=== PATIENT | female | born 1980 | race Caucasian/White ===

== ENCOUNTER → 2018-10-22 | Outpatient (CLI) | payer BC ==
--- NOTE | 2018-10-22 10:49 | Diagnostic Imaging Report ---
PROCEDURE: US abdomen complete. TECHNIQUE: Multiple real-time grayscale images were obtained over the abdomen in various projections. INDICATION: Abdominal pain. FINDINGS: The liver measures 16.6 cm in size. There is generalized increased echogenicity throughout the liver consistent with hepatic steatosis. No discrete liver mass is identified. The portal vein is patent and shows normal direction of flow. The gallbladder is without stones or sludge. No wall thickening or biliary duct dilatation is identified. The pancreatic head and proximal body are unremarkable. Pancreatic tail is not well-visualized due to overlying bowel gas. The spleen is normal in size at 9.9 cm. Right and left kidneys are unremarkable. No calculi or hydronephrosis is seen. There is no ascites. IMPRESSION: 1. Hepatic steatosis. 2. No evidence of cholelithiasis or acute cholecystitis. Dictated by: Dictated on workstation # [id number]
== END ==
LOC: RAD 07:56
PROVIDERS: ATTEND Internal Medicine
DX: K76.0 Fatty (change of) liver, not elsewhere classified (principal)
CPT/HCPCS: 76700

== ENCOUNTER → 2018-12-07 | Outpatient (CLI) | payer BC ==
[~2018-12-07] MED LIST: CATHETER FLUSH 10 ML SYR IV PRN
--- NOTE | 2018-12-07 14:48 | Diagnostic Imaging Report ---
HEPATOBILIARY SCAN DATE: December 07, 2018. INDICATION: 38-year-old female, abdominal pain and elevated liver enzymes. COMPARISON: Ultrasound October 22, 2018. PROCEDURE: 5.41 mCi of Tc-99m choletec was administered intravenously and serial anterior planar images over the liver and upper abdomen were obtained. FINDINGS: There is clearance of background activity by the liver indicating hepatocyte function. There is radiotracer excretion into the bile ducts with prompt filling of the gallbladder. There is radiotracer extension into small bowel. There is no identified enterogastric reflux. Ensure was administered for calculation of gallbladder ejection fraction. Gallbladder ejection fraction was calculated to be 16.6%. IMPRESSION: 1. No evidence of acute cholecystitis. 2. No evidence of complete bile duct obstruction. 3. Gallbladder ejection fraction measured below lower limits of normal which potentially can be seen in the setting of biliary dyskinesia and/or chronic cholecystitis. Dictated by: Dictated on workstation # [id number]
== END ==
LOC: CARD 09:30
PROVIDERS: ATTEND Internal Medicine
DX: R74.8 Abnormal levels of other serum enzymes (principal); R10.9 Unspecified abdominal pain
CPT/HCPCS: 78227

== ENCOUNTER 2018-12-21 06:37 | Outpatient (CLI) | payer BC ==
[~2018-12-21] VITALS: Ht 160 cm; Wt 117.9 kg
[2018-12-21] MEDS ORDERED: VENL150C PO (13:11)
== END 2018-12-21 13:23 | disposition home or self-care (01) ==
LOC: PREOP 06:37
PROVIDERS: ATTEND Surgery
DX: Z01.818 Encounter for other preprocedural examination (principal)

== ENCOUNTER 2018-12-23 08:24 | Day surgery (SDC) | payer BC ==
[~2018-12-23] VITALS: Ht 160 cm; Wt 117.9 kg
[~2018-12-23 08:24] MED LIST changes: -CATHETER FLUSH 10 ML SYR IV PRN; +VENL150C PO
[2018-12-23] MEDS: LACTATED RINGERS 1,000 ML IV PRN ×3 (08:45→10:35)
--- NOTE | 2018-12-23 08:51 | Progress Note-Pre Operative ---
Pre-Operative Progress Note H&P Reviewed The H&P was reviewed, patient examined and no changes noted. Date Seen by Provider: Dec 23, 2018 Time Seen by Provider: 08:50 Date H&P Reviewed: Dec 23, 2018 Time H&P Reviewed: 08:45 Pre-Operative Diagnosis: Symptomatic Biliary Dyskinesia JOHANNA ALONSO REAMING PRESS OPERATOR Dec 23, 2018 08:51
[2018-12-23] MEDS ORDERED: HYDR-3816 PO (08:53)
--- NOTE | 2018-12-23 08:54 | Discharge Inst-Surgical ---
D/C Lap Instructions-KIDO New, Converted, or Re-Newed RX: RX on Chart Follow Up Appt in 2 weeks Activity as tolerated No driving for 24 hours No driving while on pain medications Incentive Spirometry use every 2 hours while awake Regular Diet Symptoms to Report: Fever over 101 degree F, Nausea/Vomiting Infection Signs and Symptoms to report: Increased redness, Foul odor of wound, Increased drainage Bathing instructions: May shower Operative Area Clean/Dry; Keep incision clean/dry If any problems/questions: Contact your physician or go to Emergency Room JOHANNA ALONSO APRN Dec 23, 2018 08:54
[2018-12-23] MEDS ORDERED: ceFAZolin 2 GM IV Premixed 50 ML IV ONE (09:00)
[2018-12-23] MEDS ORDERED: ACETAMINOPHEN 325 MG TABLET PO PRN (09:00)
[2018-12-23] MEDS ORDERED: ONDANSETRON 4 MG/2 ML (SDV) Z0FRAN IVP PRN ×2 (09:00→11:15)
[2018-12-23] MEDS ORDERED: morphine INJ 10 MG/ML 1ML (SYR OR VIAL) IVP PRN (09:00)
[2018-12-23] MEDS ORDERED: oxyCODONE/APAP 5/325MG (PERCOCET 5) TABLET PO PRN (09:00)
[2018-12-23 09:10] LABS: BASOPHILS # (AUTO) 0.1 10^3/uL (0.0-0.1); BASOPHILS % (AUTO) 1 % (0-10); EOSINOPHILS # (AUTO) 0.3 10^3/uL (0.0-0.3); EOSINOPHILS % (AUTO) 4 % (0-10); HEMATOCRIT 39 % (35-52); HEMOGLOBIN 12.8 G/DL (11.5-16.0); LYMPHOCYTES % (AUTO) 27 % (12-44); MEAN CORPUSCULAR HEMOGLOBIN 31 PG (25-34); MEAN CORPUSCULAR HGB CONC 33 G/DL (32-36); MEAN CORPUSCULAR VOLUME 93 FL (80-99); MEAN PLATELET VOLUME 8.9 FL (7.4-10.4); MONOCYTES # (AUTO) 0.5 X 10^3 (0.0-1.0); MONOCYTES % (AUTO) 6 % (0-12); NEUTROPHILS # (AUTO) 4.5 X 10^3 (1.8-7.8); NEUTROPHILS % (AUTO) 62 % (42-75); PLATELET COUNT 297 10^3/uL (130-400); RED CELL DISTRIBUTION WIDTH 14.6 % (10.0-14.5); WHITE BLOOD COUNT 7.3 10^3/uL (4.3-11.0)
[2018-12-23] MEDS ORDERED: BUP/EPI 0.5% 1:200,000 (SENSORCAINE) 30 ML VIAL ONE (09:16)
[2018-12-23] MEDS ORDERED: fentaNYL INJECTION 100 MCG/2 ML AMP ONE (09:51)
[2018-12-23] MEDS ORDERED: MIDAZOLAM 2 MG/2 ML (VERSED) VIAL ONE (09:51)
[2018-12-23] MEDS ORDERED: proPOfol 200 MG/20 ML (DIPRIVAN) VIAL IV ONE ×2 (10:03→10:48)
[2018-12-23] MEDS ORDERED: DEXAMETHASONE 10 MG/ML (DECADRON) 1 ML VIAL ONE (10:03)
[2018-12-23] MEDS ORDERED: SEVOFLURANE (ULTANE) 15 ML INHAL SOLN ONE ×4 (10:03→10:51)
[2018-12-23] MEDS ORDERED: ROCURONIUM 10 MG/ML 5 ML SYRINGE IV ONE (10:03)
[2018-12-23] MEDS ORDERED: LIDOCAINE PF 2% 5 ML (XYLOCAINE) VIAL ONE (10:03)
[2018-12-23] MEDS ORDERED: ONDANSETRON 4 MG/2 ML (SDV) Z0FRAN ONE (10:03)
[2018-12-23] MEDS ORDERED: NEOSTIGMINE 1 MG/ML 5 ML SYRINGE ONE (10:48)
[2018-12-23] MEDS ORDERED: GLYCOPYRROLATE 0.2 MG/ML (ROBINUL) 2 ML VIAL ONE (10:48)
[2018-12-23 10:53] VITALS: BP 133/89
--- NOTE | 2018-12-23 11:05 | Progress Note-Post Operative ---
Post-Operative Progess Note Surgeon (s)/Torpedo Worker (s) Surgeon MARYAN FU MD Torpedo Worker: misael larson ORIENTATION & MOBILITY SPECIALIST Pre-Operative Diagnosis Symptomatic Biliary Dyskinesia Post-Operative Diagnosis same Procedure & Operative Findings Date of Procedure 12/23/18 Procedure Performed/Findings laparoscopic cholecystectomy Anesthesia Type GET Estimated Blood Loss Estimated blood loss (mL): minimal Specimens/Packing Specimens Removed gallbladder MARYAN FU MD Dec 23, 2018 11:05
[2018-12-23] MEDS ORDERED: morphine INJ 10 MG/ML 1ML (SYR OR VIAL) IVP ONE (11:15)
[2018-12-23] MEDS ORDERED: PROMETHAZINE INJ 25 MG/ML (PHENERGAN) AMP IVP ONE (11:15)
[2018-12-23] MEDS ORDERED: HYDROmorphone 2 MG/ML VIAL (DILAUDID) ONE (11:34)
[2018-12-23] MEDS ORDERED: HYDROmorphone 2 MG/ML VIAL (DILAUDID) IV ONE (11:45)
[2018-12-23 12:30] VITALS: BP 142/98
--- NOTE | 2018-12-23 12:53 | Anesthesia-General Post-Op ---
General Patient Condition Mental Status/LOC: Same as Preop Cardiovascular: Satisfactory Nausea/Vomiting: Absent Respiratory: Satisfactory Pain: Controlled Complications: Absent Post Op Complications Complications None Follow Up Care/Instructions Patient Instructions None needed. Anesthesia/Patient Condition Patient Condition Patient is doing well, no complaints, stable vital signs, no apparent adverse anesthesia problems. No complications reported per nursing. FRANNIE ORTEGA CRNA Dec 23, 2018 12:53
[2018-12-23 13:00] VITALS: BP 152/91
[2018-12-23 13:30] VITALS: BP 143/92
[2018-12-23 14:30] VITALS: BP 140/88
[2018-12-23 15:00] VITALS: BP 140/88
--- NOTE | 2018-12-23 15:22 | OPERATIVE REPORT ---
DATE OF SERVICE: 12/23/2018 ATTENDING PRIMARY CARE PHYSICIAN: Dr. Esposito. PREOPERATIVE DIAGNOSIS: Symptomatic biliary dyskinesia. POSTOPERATIVE DIAGNOSIS: Symptomatic biliary dyskinesia. PROCEDURE: Laparoscopic cholecystectomy. SURGEON: Maryan Fu MD SUPERVISOR LOCOMOTIVE: Harish Wilde APRN ANESTHESIA: General endotracheal. ESTIMATED BLOOD LOSS: Minimal. FINDINGS: A slightly distended gallbladder, mild hepatomegaly, appendix looked normal. DISPOSITION: The patient tolerated the procedure well. INDICATION: The patient is a 38-year-old female, who has had issues with right upper abdominal quadrant pain with radiation towards the back for the past 2 years; however, has become much more frequent as well as severe in nature. She underwent an ultrasound, which did not show any gallstones; however, HIDA scan did show a very low ejection fraction of 16% as well as reproduction of symptoms with administration of Kinevac analogue consistent with symptomatic biliary dyskinesia. DESCRIPTION OF PROCEDURE: The patient was brought to the operating room, laid supine on the table. After adequate IV pain and sedating medications and general endotracheal intubation, the abdomen was prepped and draped in standard surgical fashion. A 0.5% Marcaine with epinephrine was used to anesthetize the overlying skin in the left upper abdominal quadrant and a transverse skin incision made using a 15 blade. An 0 silk suture was applied to the medial aspect of the incision for traction and a Veress needle inserted with low opening pressure of 0 mmHg and the abdomen was insufflated to 15 mmHg pressure. The Veress needle removed and a 5 mm Xcel trocar placed followed by a 5 mm 45-degree angle laparoscope visualizing the peritoneal cavity. A 4-quadrant abdominal exploration was performed. There was mild gallbladder distention and mild hepatomegaly. The appendix appeared normal. Under direct visualization, we then proceeded to place a supraumbilical 10 mm port after the skin and peritoneal lining were anesthetized using 0.5% Marcaine with epinephrine and a transverse skin incision made using a 15 blade. In a similar manner, a right upper abdominal quadrant 5 mm port was placed. The patient was then placed in reverse Trendelenburg position as well as plane right side up and left side down. The fundus of the gallbladder was then retracted anteriorly and superiorly. The hepatoduodenal ligament was then opened using blunt dissection as well as electrocautery on the hook instrument. The entire critical view of safety was identified including the cystic duct and artery as the only two structures going into the gallbladder, the triangle of Calot as well as the cystic plate behind the proximal gallbladder. A timeout was then taken and the cystic duct and artery were then clipped proximally, distally and cut with EndoShears. The gallbladder was then dissected off the liver bed using cautery on hook instrument with visualization of good hemostasis as well as no leaking ducts of Luschka. The gallbladder was removed through the 10 mm port site using an EndoCatch bag. The 10 mm port site fascia and peritoneum were then closed under direct visualization using a Bravo-Kian device and 0 Vicryl suture. The abdomen was desufflated and the remaining ports removed. All skin incisions were closed using 4-0 Monocryl running subcuticular sutures. Wounds were then cleaned and covered with Dermabond. The patient tolerated the procedure well. We will start IV and oral pain medication as well as a clear liquid diet. Once she is tolerating clears, has good pain control with oral pain medications, ambulating well, we will discharge her home. She will be instructed to do no heavy lifting or exertion for the next two weeks. Job ID: [id number] DocumentID: [id number] Dictated Date: 12/23/2018 10:54:02 Field Laborer Date: 12/23/2018 15:21:43 Dictated By: MARYAN FU MD
--- NOTE | 2018-12-27 14:02 | Progress Note-Standard ---
Standard Progress Note Progress Notes/Assess & Plan Date Seen by a Provider: Dec 27, 2018 Time Seen by a Provider: 13:33 Progress/Assessment & Plan I was notified by Dr. Mendoza that Mrs. Simpson called our office earlier today with complaints of an elongated, white uvula that was causing symptoms of fullness and choking. Upon me calling the patient, the patient states she first noticed these symptoms once she was at home on (12/23/18) evening. She states she went to Urgent Care with these symptoms on Thursday (12/25) and was given a shot of something (she wasn't sure what) and was put on Augmentin PO. The patient said the WELDING MACHINE OPERATOR RESISTANCE at Urgent Care is who told her that her uvula looks elongated and white. Upon reviewing the anesthesia record from 12/23, the patient 's course of stay in the OR was uneventful. The intubation was with a 7.0 ett, using the Bush video laryngoscope, with an atraumatic placement. The total time the patient was under anesthesia was around 1 hour. I recall no problems with intubation, extubation or any problems with the patient in recovery. I reviewed the anesthesia record with the patient and discussed that I had no explanation for her signs and symptoms. I offered to the patient that she could come in to day surgery this afternoon so we could evaluate her uvula, or that we could give the antibiotics a couple more days to work and re-evaluate her on Thursday (12/29). The patient stated she would wait a couple more days before coming in to be evaluated, which I feel to be appropriate. I will call and follow up with the patient on Thursday12/29/18. LADONNA QUINTERO CRNA Dec 27, 2018 14:02
== END 2018-12-23 14:55 | disposition home or self-care (01) ==
LOC: SDC 08:24
PROVIDERS: ATTEND Surgery
DX: K81.1 Chronic cholecystitis (principal); K21.9 Gastro-esophageal reflux disease without esophagitis; F41.9 Anxiety disorder, unspecified; E66.01 Morbid (severe) obesity due to excess calories; Z68.42 Body mass index [BMI] 45.0-49.9, adult; Z79.899 Other long term (current) drug therapy
CPT/HCPCS: 36415; 84703; 85025; 87081; 88304

== ENCOUNTER 2019-05-19 17:14 | Emergency (ER) | payer OTHER, BC ==
[~2019-05-19] VITALS: Ht 160 cm; Wt 120.2 kg
[~2019-05-19 17:14] MED LIST changes: +HYDR-3816 PO
--- NOTE | 2019-05-19 18:34 | Diagnostic Imaging Report ---
EXAM: KNEE, LEFT, 3 VIEWS INDICATION: Left knee pain. Fall. COMPARISON: None. FINDINGS: No fracture or malalignment. No suspicious osteoblastic or lytic lesions. Soft tissue shadows are unremarkable. IMPRESSION: Negative left knee radiographs. Dictated by: Dictated on workstation # [id number]
--- NOTE | 2019-05-19 18:35 | Diagnostic Imaging Report ---
INDICATION: Fall, ankle pain 3 views of each ankle were obtained. There is no fracture, dislocation or other abnormality. IMPRESSION: Normal bilateral ankles. Dictated by: Dictated on workstation # [id number]
--- NOTE | 2019-05-19 18:36 | Diagnostic Imaging Report ---
EXAM: TIBIA/FIBULA, LEFT, 2 VIEWS INDICATION: Fall. Left lower extremity pain. COMPARISON: None. FINDINGS: Mildly displaced oblique fracture of the distal left fibular diaphysis. No other fracture or malalignment. No suspicious osteoblastic or lytic lesions. Soft tissue shadows are unremarkable. IMPRESSION: Mildly displaced oblique fracture of the distal left fibular diaphysis. Dictated by: Dictated on workstation # [id number]
--- NOTE | 2019-05-19 18:52 | ED Fall/Injury ---
General Chief Complaint: Lower Extremity Stated Complaint: FALL Nursing Triage Note: PATIENT HERE BY EMS AFTER MISSING A STEP AND FALLING ON STAIRS. PAIN TO LEFT ANKLE AND WRIGHT AND TOP OF RIGHT FOOT. Source: patient History of Present Illness Date Seen by Provider: May 19, 2019 Time Seen by Provider: 17:50 Initial Comments PT ARRIVES VIA POV STATES SHE FELL DOWN 2 STEPS AT WORK ( WORKS AT [employer] ) AT 1645 TODAY C/O BILATERAL ANKLE PAIN, LEFT LOWER LEG AND KNEE PAIN DID NOT HIT HEAD AND NO LOSS OF CONSCIOUSNESS NO INJURIES ABOVE KNEES NO PARESTHESIAS OR MOTOR DEFICITS NO PRIOR INJURY TO EITHER FOOT, ANKLE OR LEG HAS NOT TAKEN ANYTHING FOR PAIN PCP: DR. BOSCH Allergies and Home Medications Allergies Coded Allergies: bacitracin (Verified Allergy, Mild, RASH, 12/21/18) neomycin (Verified Allergy, Mild, RASH, 12/21/18) polymyxin B (Verified Allergy, Mild, RASH, 12/21/18) Home Medications Hydrocodone Bit/Acetaminophen 1 Tab Tab, 1-2 EACH PO Q6H PRN for PAIN-MODERATE Prescribed by: JARON JUAN on 05/19/19 1859 Hydrocodone/Acetaminophen 1 Each Tablet, 1-2 TAB PO Q4H Prescribed by: JOHANNA ALONSO on 12/23/18 0853 Venlafaxine HCl 150 Mg Cap.er.24h, 150 MG PO DAILY, (Reported) Patient Home Medication List Home Medication List Reviewed: Yes Review of Systems Review of Systems Constitutional: no symptoms reported Respiratory: no symptoms reported Cardiovascular: no symptoms reported Gastrointestinal: no symptoms reported Genitourinary: no symptoms reported LMP: May 12, 2019 (IUD IN PLACE) Musculoskeletal: see HPI Skin: no symptoms reported Psychiatric/Neurological: No Symptoms Reported Past Gmiqjjm-Kmnlay-Mvjvym Hx Past Med/Social Hx: Reviewed and Corrections made Patient Social History Alcohol Use: Occasionally Uses Recreational Drug Use: No Smoking Status: Never a Smoker 2nd Hand Smoke Exposure: No Recent Foreign Travel: No Contact w/Someone Who Travel: No Recent Infectious Disease Expo: No Recent Hopitalizations: No Physical Abuse: No Sexual Abuse: No Immunizations Up To Date Date of Influenza Vaccine: Jun 21, 2018 Seasonal Allergies Seasonal Allergies: Yes Past Medical History Surgeries: Yes (SINUS SURGERY X 3) Gallbladder Respiratory: No Cardiac: No Neurological: No : No 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00" Weight: 265lbs. 0oz. 120.629378ne; 46.1 BMI Method:Stated General Appearance: WD/WN, no apparent distress HEENT: PERRL/EOMI Neck: non-tender, full range of motion, supple, normal inspection Cardiovascular: regular rate, rhythm, no murmur Respiratory: chest non-tender, normal breath sounds, no respiratory distress, no accessory muscle use Peripheral Pulses: 2+ Dorsalis Pedis (R), 2+ Left Dors-Pedis (L) Gastrointestinal: non tender, soft Back: normal inspection, no CVA tenderness, no vertebral tenderness Extremities: other (TENDERNESS AND SLIGHT SWELLING TO RIGHT ANKLE/LATERAL MALLEOLUS. DISTAL MOTOR/SENSORY/VASCULAR INTACT; MILD SWELLING TO LEFT ANKLE/ LATERAL MALLEOLUS, MODERATE TENDERNESS TO LATERAL MALLEOLUS. DISTAL HALF OF LEFT LOWER LEG AND MILD TENDERNESS TO LEFT KNEE. 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 as tested, no motor/sensory deficits, alert, normal mood/affect, oriented x 3 Skin: normal color, warm/dry [place] Coma Score Best Eye Response: (4) Open Spontaneously Best Verbal Response: (5) Oriented Best Motor Response: (6) Obeys Commands [place] Total: 15 Procedures/Interventions Splinting and Joint Reduction : Syed wrap: Yes Immobilizers: Step Light Walker s/m/lg Ordered: Crutches Progress/Results/Core Measures Results/Orders My Orders Orders - JARON JUAN DO Tibia/Fibula, Left, 2 Views (05/19/19 17:57) Knee, Left, 3 Views (05/19/19 17:57) Ankle, Bilateral, 3 Views (05/19/19 17:57) Hydrocodone/Apap 5/325 Tablet (Lortab 5 (05/19/19 19:00) Syed Bandage (05/19/19 18:52) Crutches (05/19/19 18:52) Steplite (05/19/19 18:52) Medications Given in ED Vital Signs/I&O 05/19/19 05/19/19 17:15 19:45 Temp 99.6 99.6 Pulse 94 94 Resp 18 18 B/P (MAP) 153/104 (120) 153/104 (120) Pulse Ox 100 100 Blood Pressure Mean: 120 Diagnostic Imaging Comments XRAYS PER RADIOLOGIST REPORTS AT 1848: RIGHT ANKLE--NO ACUTE BONY INJURY LEFT KNEE--NO ACUTE BONY INJURY LEFT TIB-FIB--DISTAL FIBULA FRACTURE LEFT ANKLE--DISTAL FIBULA FRACTURE Reviewed: Reviewed by Me Departure Impression Primary Impression: S/P FALL DOWN STEPS Additional Impressions: Closed left fibular fracture Right ankle sprain LEFT KNEE CONTUSON Contusion of left knee, initial encounter Disposition: 01 HOME, SELF-CARE Condition: Stable Departure-Patient Inst. Referrals: JULIET BOSCH DO (PCP/Family) Primary Care Physician MARYANN DAMIAN MD Patient Instructions: Fibula Fracture (DC), Ankle Sprain (DC), Contusion (DC) Add. Discharge Instructions: ICE TO SORE AREAS AT 20 MINUTE INTERVALS ELEVATE FEET MUCH POSSIBLE SYED WRAP TO BOTH LEGS WEAR BOOT ON LEFT AT ALL TIMES USE CRUTCHES AT ALL TIMES--NO WEIGHT BEARING ON LEFT LEG UNTIL CLEARED BY DR. FOLLOW UP WITH DR. DAMIAN, ORTHOPEDIC SURGEON THIS WEEK FOR FURTHER CARE All discharge instructions reviewed with patient and/or family. Voiced understanding. Scripts Hydrocodone Bit/Acetaminophen (Hydrocodone/Acetaminophen 5/325mg Tablet) 1 Tab Tab 1-2 EACH PO Q6H PRN for PAIN-MODERATE MDD 10, #20 TAB Prov: JARON JUAN DO 05/19/19 JARON JUAN DO May 19, 2019 18:52
[2019-05-19] MEDS ORDERED: ACHD5005 PO (18:59)
[2019-05-19] MEDS ORDERED: HYDROcodone/APAP 5 MG/325 MG (LORTAB) TAB PO ONE (19:00)
[2019-05-19 19:45] VITALS: BP 153/104
== END 2019-05-19 19:47 | disposition home or self-care (01) ==
LOC: EDUNIT# 17:14 → ER 17:15
DX: S82.432A Displaced oblique fracture of shaft of left fibula, initial encounter for closed fracture (principal); S80.02XA Contusion of left knee, initial encounter; S93.401A Sprain of unspecified ligament of right ankle, initial encounter; K21.9 Gastro-esophageal reflux disease without esophagitis; E03.9 Hypothyroidism, unspecified; F41.9 Anxiety disorder, unspecified; R40.2142 Coma scale, eyes open, spontaneous, at arrival to emergency department; R40.2252 Coma scale, best verbal response, oriented, at arrival to emergency department; R40.2362 Coma scale, best motor response, obeys commands, at arrival to emergency department; Z88.1 Allergy status to other antibiotic agents; W10.9XXA Fall (on) (from) unspecified stairs and steps, initial encounter; Y92.59 Other trade areas as the place of occurrence of the external cause; Y99.0 Civilian activity done for income or pay
CPT/HCPCS: 73562; 73590

== ENCOUNTER 2019-07-01 09:38 | Outpatient (CLI) | payer OTHER, BC ==
[~2019-07-01] VITALS: Ht 160 cm; Wt 120.4 kg
[~2019-07-01 09:38] MED LIST changes: +ACHD5005 PO
[2019-07-01] MEDS ORDERED: LEVO5TAB28 PO (09:42)
== END 2019-07-01 09:56 | disposition home or self-care (01) ==
LOC: PREOP 09:38
PROVIDERS: ATTEND Orthopaedic Surgery
DX: Z01.818 Encounter for other preprocedural examination (principal)

== ENCOUNTER 2019-07-06 09:18 | Day surgery (SDC) | payer BC, OTHER ==
[2019-07-06] VITALS (12 sets, daily range): BP systolic 103–135; BP diastolic 72–90
[~2019-07-06] VITALS: Ht 160 cm; Wt 120.4 kg
[~2019-07-06 09:18] MED LIST changes: +LEVO5TAB28 PO
--- NOTE | 2019-07-06 09:20 | Progress Note-Pre Operative ---
Pre-Operative Progress Note H&P Reviewed The H&P was reviewed, patient examined and no changes noted. Date Seen by Provider: Jul 06, 2019 Time Seen by Provider: 09:20 Date H&P Reviewed: Jul 06, 2019 Time H&P Reviewed: 09:20 Pre-Operative Diagnosis: left ankle syndesmosis disruption MANUEL AUGUSTIN MD Jul 06, 2019 09:20
--- NOTE | 2019-07-06 09:21 | Progress Note-Post Operative ---
Post-Operative Progess Note Surgeon (s)/Marine Geologist (s) Surgeon MANUEL AUGUSTIN MD Marine Geologist: Michael Hay Pre-Operative Diagnosis left ankle syndesmosis disruption Post-Operative Diagnosis left ankle syndesmosis disruption Procedure & Operative Findings Date of Procedure 07/06/19 Procedure Performed/Findings ORIF left syndesmosis Anesthesia Type GETA Estimated Blood Loss Estimated blood loss (mL): minimal Specimens/Packing Specimens Removed none Packing: none MANUEL AUGUSTIN MD Jul 06, 2019 09:21
[2019-07-06] MEDS ORDERED: LACTATED RINGERS 1,000 ML IV PRN (09:28)
[2019-07-06] MEDS ORDERED: ceFAZolin INJECTION 1,000 MG in WATER (STERILE) FOR INJECTION 10 ML IV ONE (09:30)
[2019-07-06] MEDS ORDERED: HYDROcodone/APAP 7.5 MG/325 MG (LORTAB, LORCET PLUS) TABLET PO PRN (09:30)
[2019-07-06] MEDS ORDERED: ONDANSETRON 4 MG/2 ML (SDV) Z0FRAN ONE ×2 (09:58→11:21)
[2019-07-06] MEDS ORDERED: SCOPOLAMINE 1.5 MG (TRANSDERM-SCOP) PATCH ONE (09:58)
[2019-07-06] MEDS ORDERED: FAMOTIDINE 20MG/2ML IV (PEPCID) ONE (09:58)
[2019-07-06] MEDS ORDERED: FAMOTIDINE 20MG/2ML IV (PEPCID) IV ONE (10:00)
[2019-07-06] MEDS ORDERED: ONDANSETRON 4 MG/2 ML (SDV) Z0FRAN IV ONE (10:00)
[2019-07-06] MEDS ORDERED: SCOPOLAMINE 1.5 MG (TRANSDERM-SCOP) PATCH TOP ONE (10:00)
[2019-07-06] MEDS ORDERED: DEXAMETHASONE 10 MG/ML (DECADRON) 1 ML VIAL ONE (11:21)
[2019-07-06] MEDS ORDERED: LIDOCAINE PF 2% 5 ML (XYLOCAINE) VIAL ONE (11:21)
[2019-07-06] MEDS ORDERED: SEVOFLURANE (ULTANE) 15 ML INHAL SOLN ONE (11:21)
[2019-07-06] MEDS ORDERED: proPOfol 200 MG/20 ML (DIPRIVAN) VIAL IV ONE (11:21)
[2019-07-06] MEDS ORDERED: fentaNYL INJECTION 100 MCG/2 ML AMP ONE (11:21)
[2019-07-06] MEDS ORDERED: MIDAZOLAM 2 MG/2 ML (VERSED) VIAL ONE (11:22)
[2019-07-06] MEDS ORDERED: BUPIVACAINE 0.5% 30 ML (SENSORCAINE) VIAL ONE (11:34)
[2019-07-06] MEDS ORDERED: HYDROmorphone 2 MG/ML VIAL (DILAUDID) ONE (12:40)
[2019-07-06] MEDS ORDERED: ONDANSETRON 4 MG/2 ML (SDV) Z0FRAN IVP PRN (12:45)
[2019-07-06] MEDS ORDERED: PROMETHAZINE INJ 25 MG/ML (PHENERGAN) AMP IVP ONE (12:45)
[2019-07-06] MEDS ORDERED: HYDROmorphone 2 MG/ML VIAL (DILAUDID) IV ONE (12:45)
[2019-07-06] MEDS ORDERED: morphine INJ 10 MG/ML 1ML (SYR OR VIAL) IVP ONE (12:45)
[2019-07-06] MEDS ORDERED: MEPERIDINE (DEMEROL) INJ 50 MG/ML IVP ONE (12:45)
--- NOTE | 2019-07-06 13:54 | Anesthesia-General Post-Op ---
General Patient Condition Mental Status/LOC: Same as Preop Cardiovascular: Satisfactory Nausea/Vomiting: Absent Respiratory: Satisfactory Pain: Controlled Complications: Absent Post Op Complications Complications None Follow Up Care/Instructions Patient Instructions None needed. Anesthesia/Patient Condition Patient Condition Patient is doing well, no complaints, stable vital signs, no apparent adverse anesthesia problems. No complications reported per nursing. FRANNIE ORTEGA CRNA Jul 06, 2019 13:54
[2019-07-06] MEDS ORDERED: HYDR-3816 PO (13:57)
--- NOTE | 2019-07-06 16:43 | Diagnostic Imaging Report ---
INDICATION: Left ankle syndesmosis injury. COMPARISON: Left ankle radiographs from 05/19/2019. FINDINGS AND IMPRESSION: Three spot fluoroscopic images and 17.8 seconds of fluoroscopy time was utilized during tightrope fixation across the tibiofibular syndesmosis. Dictated by: Dictated on workstation # [id number]
--- NOTE | 2019-07-06 21:00 | OPERATIVE REPORT ---
DATE OF SERVICE: 07/06/2019 PREOPERATIVE DIAGNOSIS: Left syndesmosis disruption. POSTOPERATIVE DIAGNOSIS: Left syndesmosis disruption. PROCEDURE: Open reduction and internal fixation of left syndesmosis. SURGEON: Amauri Augustin MD POWER PLANT ELECTRICIAN: Michael Hay, who assisted throughout the procedure and closed the incision. ANESTHESIA: General endotracheal by Boaz Stewart CRNA. TOURNIQUET TIME: Is not applicable. ESTIMATED BLOOD LOSS: Minimal. DRAINS: None. COMPLICATIONS: None. POSTOPERATIVE PLAN: Crutch ambulation for 2 weeks followed by weightbearing as tolerated in a boot. The patient was transferred to the recovery room awake and in stable condition. STATEMENT OF MEDICAL NECESSITY: The patient is a 38-year-old female, who sustained a fibular shaft fracture six weeks ago roughly and who initially had an intact mortise and syndesmosis; however, on followup radiographs, there was widening of her syndesmosis and because of this, it was recommended that the patient undergo operative fixation. DESCRIPTION OF PROCEDURE: After risks and benefits of procedure were discussed and questions were answered, informed consent was signed and placed on chart. The operative site was confirmed in the preoperative holding area initialed by the surgeon. The patient was then transferred to the operating room. After adequate levels of general endotracheal anesthetic were obtained, a timeout was called, confirming the operative site. The left lower extremity was prepped and draped in the usual sterile fashion. Under fluoroscopic visualization, the syndesmosis was stressed and found to be unstable. A stab incision was made over the distal fibula, approximately 3 cm proximal to the joint surface in parallel fashion to the joint surface. Drill was passed through the fibula and tibia extending medially. The Arthrex TightRope was then passed. The button was flipped under fluoroscopic visualization and the lateral button was pulled to the fibular surface. Fluoroscopy in AP, lateral and oblique planes revealed well reduced syndesmosis with no widening on her lifetime fluoroscopy. The wound was copiously irrigated and closed with 4-0 nylon in simple interrupted fashion. A soft dressing and boot were applied. The patient was transferred to the recovery room awake and in stable condition. Job ID: [id number] DocumentID: [id number] Dictated Date: 07/06/2019 12:14:50 Hydrotel Operator Date: 07/06/2019 20:59:27 Dictated By: AMAURI AUGUSTIN MD
== END 2019-07-06 14:40 | disposition home or self-care (01) ==
LOC: SDC 09:18
PROVIDERS: ATTEND Orthopaedic Surgery
DX: S93.432A Sprain of tibiofibular ligament of left ankle, initial encounter (principal); I47.1 Supraventricular tachycardia; E66.01 Morbid (severe) obesity due to excess calories; F41.9 Anxiety disorder, unspecified; Z90.49 Acquired absence of other specified parts of digestive tract; Z88.1 Allergy status to other antibiotic agents; Z88.8 Allergy status to other drugs, medicaments and biological substances; Z68.41 Body mass index [BMI] 40.0-44.9, adult; Z79.891 Long term (current) use of opiate analgesic; Z79.899 Other long term (current) drug therapy; Z82.49 Family history of ischemic heart disease and other diseases of the circulatory system
CPT/HCPCS: 84703; 87081

== ENCOUNTER → 2020-06-21 | Outpatient (CLI) | payer BC ==
[~2020-06-21] MED LIST changes: +HYDR-34 PO; -HYDR-3816 PO
== END ==
LOC: LAB 16:55
PROVIDERS: ATTEND Internal Medicine Cardiovascular Disease
DX: R07.89 Other chest pain (principal); Z86.79 Personal history of other diseases of the circulatory system
CPT/HCPCS: 36415; 84703

== ENCOUNTER → 2020-06-22 | Outpatient (CLI) | payer BC ==
[~2020-06-22] VITALS: Ht 160 cm; Wt 118.0 kg
[~2020-06-22] MED LIST changes: +REGADENOSON 0.4 MG/5 ML SYR (LEXISCAN) IV ONE
[2020-06-22] MEDS: CATHETER FLUSH 10 ML SYR IV PRN ×2 (08:07→09:26)
[2020-06-22 09:25] VITALS: BP 123/82
--- NOTE | 2020-06-22 19:10 | STRESS TEST ---
DATE OF SERVICE: 06/22/2020 RESTING AND POST REGADENOSON TECHNETIUM-99M TETROFOSMIN SPECT CT IMAGING ORDERING PHYSICIAN: Dr. Mendez. PRIMARY PHYSICIAN: Dr. Esposito. CLINICAL DIAGNOSIS: Chest discomfort. Baseline images were carried out after injection of 9.94 mCi of technetium-99m Tetrofosmin. This was followed by 0.4 mg regadenoson and 27.8 mCi of technetium-99m Tetrofosmin for stress imaging. The electrocardiogram showed sinus tachycardia at baseline. It did not change significantly with regadenoson infusion. The patient tolerated the procedure well. Review of images at rest and following stress does not indicate any distinct perfusion defects consistent with significant myocardial ischemia or infarction. Some degree of breast and diaphragmatic attenuation is seen both at rest and following regadenoson infusion. Gated images show normal global left ventricular systolic function with normal regional wall motion, including the anterolateral and the diaphragmatic wall of the left ventricle. Left ventricular ejection fraction is calculated to be 80%. Left ventricular end diastolic volume is 36 mL. TID is absent (1.07). CONCLUSIONS: 1. No evidence of significant myocardial ischemia or infarction. 2. Normal regional wall motion. 3. Normal global left ventricular systolic function with a calculated ejection fraction of 80%. Job ID: [id number] DocumentID: [id number] Dictated Date: 06/22/2020 13:40:04 Sales Service Rep Date: 06/22/2020 19:09:50 Dictated By: TIM MENDEZ MD, MA, FACP, FACC,
== END ==
LOC: CARD 07:37
PROVIDERS: ATTEND Internal Medicine Cardiovascular Disease
DX: R07.89 Other chest pain (principal); Z86.79 Personal history of other diseases of the circulatory system
CPT/HCPCS: 78452; 93017

== ENCOUNTER → 2020-06-25 | Outpatient (CLI) | payer BC ==
[~2020-06-25] MED LIST changes: -REGADENOSON 0.4 MG/5 ML SYR (LEXISCAN) IV ONE
== END ==
LOC: CARD 11:30
PROVIDERS: ATTEND Internal Medicine Cardiovascular Disease
DX: R07.89 Other chest pain (principal); R29.818 Other symptoms and signs involving the nervous system; Z86.79 Personal history of other diseases of the circulatory system
CPT/HCPCS: 93306

== ENCOUNTER 2020-08-20 13:03 | Outpatient (CLI) | payer BC | END 2020-08-20 13:20 | disposition home or self-care (01) | LOC: SLEEP 13:03 | PROVIDERS: ATTEND Nurse Practitioner | DX: G47.33 Obstructive sleep apnea (adult) (pediatric) (principal) ==

== ENCOUNTER → 2021-11-25 | Outpatient (CLI) | payer OTHER ==
--- NOTE | 2021-11-25 16:17 | Diagnostic Imaging Report ---
INDICATION: Routine screening. COMPARISON: No prior mammograms are available for comparison. This is a baseline study. TECHNIQUE: 2D and 3D bilateral screening mammography was performed with CAD. FINDINGS: Both breasts are heterogeneously dense, limiting the sensitivity of mammography. There appear to be intraparenchymal lymph nodes in the upper and outer aspect of the left breast at posterior depth. No spiculated mass or malignant-appearing microcalcifications are seen. The axillae are unremarkable. IMPRESSION: No mammographic features suspicious for malignancy are identified. ACR BI-RADS Category 2: Benign findings. Result letter will be mailed to the patient. Note: At least 10% of breast cancer is not imaged by mammography. Dictated by: Dictated on workstation # [id number]
== END ==
LOC: RAD 11:00
PROVIDERS: ATTEND Internal Medicine
DX: Z12.31 Encounter for screening mammogram for malignant neoplasm of breast (principal)
CPT/HCPCS: 77063; 77067

== ENCOUNTER → 2023-04-08 | Outpatient (CLI) | payer BC ==
[~2023-04-08] MED LIST changes: -VENL150C PO; +VENL150C3 PO
--- NOTE | 2023-04-08 10:36 | Diagnostic Imaging Report ---
EXAMINATION: 3D bilateral screening mammogram with CAD. INDICATION: Screening. COMPARISON: This study was compared to the prior exam of 11/25/2021. PERSONAL HISTORY: At this time, there are no current complaints. FINDINGS: The fibroglandular tissue in both breasts is heterogeneously dense. This does limit the sensitivity of this exam. When compared to the previous study, there does not appear to have been any significant change. There is no primary or secondary sign of malignancy noted. The benign-appearing intraparenchymal lymph nodes in the upper-outer quadrant of the left breast seen previously are again evident and no different. IMPRESSION: There is no evidence for malignancy. ACR BI-RADS Category 1: Negative. Result letter will be mailed to the patient. Note: At least 10% of breast cancer is not imaged by mammography. Dictated by: Dictated on workstation # [id number]
== END ==
LOC: RAD 07:46
PROVIDERS: ATTEND Internal Medicine
DX: Z12.31 Encounter for screening mammogram for malignant neoplasm of breast (principal)
CPT/HCPCS: 77063; 77067